=== PATIENT | female | born 1950 | race Caucasian/White ===

== ENCOUNTER 2017-08-18 08:00 | Outpatient (CLI) | payer BC | END 2017-08-18 08:01 | disposition home or self-care (01) | LOC: BICULT 08:00 | PROVIDERS: ATTEND Otolaryngology | DX: E04.1 Nontoxic single thyroid nodule (principal); E04.2 Nontoxic multinodular goiter | CPT/HCPCS: 76536 ==

== ENCOUNTER 2018-04-15 08:23 | Outpatient (CLI) | payer BC | END 2018-04-15 08:24 | disposition home or self-care (01) | LOC: BICMAMMO 08:23 | PROVIDERS: ATTEND Internal Medicine | DX: Z12.31 Encounter for screening mammogram for malignant neoplasm of breast (principal) | CPT/HCPCS: 77063; 77067 ==

== ENCOUNTER 2019-05-06 07:53 | Outpatient (CLI) | payer BC ==
--- NOTE | 2019-05-06 08:31 | MMO ---
Bilateral MAMMO Bilat Screen [facility]. CLINICAL HISTORY: Patient is 68 years old and is seen for screening. The patient has no family history of breast cancer. The patient has no personal history of cancer. VIEWS: The views performed were: bilateral craniocaudal with tomosynthesis and bilateral mediolateral oblique with tomosynthesis. FILMS COMPARED: The present examination has been compared to a prior imaging study performed at [facility] on 04/15/2018. This study has been interpreted with the assistance of computer-aided detection. MAMMOGRAM FINDINGS: There are scattered fibroglandular densities. There are stable benign appearing calcifications seen in both breasts. There are no suspicious masses, suspicious calcifications, or new areas of architectural distortion. IMPRESSION: THERE IS NO MAMMOGRAPHIC EVIDENCE OF MALIGNANCY. A ROUTINE FOLLOW-UP MAMMOGRAM IN 1 YEAR IS RECOMMENDED. THE RESULTS OF THIS EXAM WERE SENT TO THE PATIENT. ACR BI-RADS Category 2 - Benign finding MAMMOGRAPHY NOTE: 1. A negative mammogram report should not delay a biopsy if a dominant of clinically suspicious mass is present. 2. Approximately 10% to 15% of breast cancers are not detected by mammography. 3. Adenosis and dense breasts may obscure an underlying neoplasm. Reported by: DENEEN CURIEL MD Electonically Signed: [id number]
== END 2019-05-06 07:54 | disposition home or self-care (01) ==
LOC: BICMAMMO 07:53
PROVIDERS: ATTEND Internal Medicine
DX: Z12.31 Encounter for screening mammogram for malignant neoplasm of breast (principal)
CPT/HCPCS: 77063; 77067

== ENCOUNTER 2019-10-28 08:05 | Outpatient (CLI) | payer BC ==
--- NOTE | 2019-10-28 13:49 | CT ---
POSTCONTRAST SOFT TISSUE NECK CT: HISTORY: Acute tracheitis. Sore throat. Swollen larynx. COMPARISON: None. FINDINGS: Visualized brain parenchyma does not demonstrate any pathologic enhancement. Bilateral ocular lenses are appropriately located. Both globes are intact. Retrobulbar fat is prese rved. Symmetric attenuation of the optic nerves and ocular rectus muscles. Adequate aeration of the visualized sinuses and mastoid air cells. Limited evaluation of the oral cavity by dental amalgam artifact. Midline fatty raphae of the tongue is preserved. Epiglottis has a normal caliber. Preepiglottic fat is preserved. The supraglottic, glottic, and subglottic larynx do not demonstrate any obvious mucosal abnormality. There is asymmetr ic prominence of the right piriform sinus suggesting possible right vocal cord paralysis. Anterior a nd posterior commissures appear to be grossly unremarkable. No obvious inflammatory changes in the s oft tissues at the level of the thyroid cartilage or hyoid bone. Symmetric attenuation of the paraspinal muscles. Symmetric attenuation of the submandibular glands. Unremarkable thyroid gland. Fatty replacement of both parotid glands is demonstrated. Cervical spine vertebral body heights are maintained. No fracture. Loss of disk space height and os teophyte formation at C5-C6 and C6-C7. There are varying degrees of foraminal stenosis and foraminal narrowing. Technique limits evaluation. Upper mediastinum and lung apices do not demonstrate an acute abnormality. No evidence of lymphadenopathy due to size criteria. IMPRESSION: 1. Asymmetric prominence of right piriform sinus. Correlate for right vocal cord paralysis. 2. No obvious upper mediastinal masses which would account for possible right vocal cord paralysis. POS: CET
== END 2019-10-28 08:06 | disposition home or self-care (01) ==
LOC: SCSCT 08:05
PROVIDERS: ATTEND Otolaryngology Otolaryngic Allergy
DX: J04.10 Acute tracheitis without obstruction (principal); J38.4 Edema of larynx; K21.9 Gastro-esophageal reflux disease without esophagitis
CPT/HCPCS: 70491; 82565

== ENCOUNTER 2024-09-03 12:54 | Outpatient (CLI) | payer MEDICARE ==
[2024-09-03 14:14] LABS: #Basophils 0.04 10x3/uL (0.0-0.2); %Basophils 0.4 % (0.0-1.0); %Eosinophils 1.4 % (0.0-10.0); %Lymphocytes 21.8 % (21.0-51.0); %Monocytes 8.3 % (0.0-10.0); %Neutrophils 67.8 % (42.0-75.0); Hematocrit 40.5 % (36.0-47.0); Hemoglobin 13.3 g/dL (12.0-16.0); Mean Corpuscular HGB CONC 32.8 g/dL (32.0-36.0); Mean Corpuscular Hemoglobin 28.7 pg (27.0-31.0); Mean Corpuscular Volume 87.5 fL (78.0-98.0); Mean Platelet Volume 9.7 fL (7.4-10.4); Platelet Count 225 10x3/uL (130-400); RBC Distribution Width 12.6 % (11.5-14.5); Red Blood Cell (RBC) Count 4.63 mill/uL (4.20-5.40)
== END 2024-09-03 12:55 | disposition home or self-care (01) ==
LOC: LABBT 12:54
PROVIDERS: ATTEND Orthopaedic Surgery Hand Surgery
DX: Z01.818 Encounter for other preprocedural examination (principal); G56.02 Carpal tunnel syndrome, left upper limb
CPT/HCPCS: 85025

== ENCOUNTER 2024-09-07 07:48 | Day surgery (SDC) | payer MEDICARE ==
[2024-09-03 13:32] VITALS: BMI 32.0
[2024-09-07] MEDS ORDERED: Lidocaine 1% PF 5 ML VIAL ONE (09:41)
[2024-09-07] MEDS ORDERED: Dexamethasone 20 MG/5 ML VIAL ONE (09:41)
[2024-09-07] MEDS ORDERED: fentaNYL PF 100 MCG/2 ML SYRINGE ONE (09:41)
[2024-09-07] MEDS ORDERED: Ondansetron PF 4 MG/2 ML Vial ONE (09:41)
[2024-09-07] MEDS ORDERED: PROPOFOL 20 ML ONE (09:41)
[2024-09-07] MEDS ORDERED: Bacitracin Zinc Ointment 30 gm TUBE ONE (09:44)
[2024-09-07] MEDS ORDERED: Betamet Acet/Betamet Na Ph 30 MG/5 ML VIAL ONE (09:44)
[2024-09-07] MEDS ORDERED: Bupivacaine PF 0.5% 30 ML VIAL ONE (09:44)
[2024-09-07] MEDS ORDERED: CEFAZOLIN 2 GM VIAL ONE (10:12)
[2024-09-07] MEDS ORDERED: Sodium Chloride 0.9% 100 ML ONE (10:12)
[2024-09-07] MEDS ORDERED: Midazolam HCl 2 mg/2 ml Vial ONE (10:14)
[2024-09-07] MEDS ORDERED: PHENYLEPHRINE-NS 100 MCG/ML 10 ML SYRINGE ONE (10:47)
[2024-09-07] MEDS ORDERED: Glycopyrrolate 0.2 MG/ML 5 ML SYRINGE ONE (10:47)
[2024-09-07] MEDS ORDERED: Ketorolac Tromethamine 30 MG (1 mL) VIAL ONE (11:53)
== END 2024-09-07 13:48 | disposition home or self-care (01) ==
LOC: SDC 07:48
PROVIDERS: ATTEND Orthopaedic Surgery Hand Surgery
PROC: 01N50ZZ Release Median Nerve, Open Approach (ICD-10-PCS; principal; 2024-09-07)
DX: G56.03 Carpal tunnel syndrome, bilateral upper limbs (principal); E78.00 Pure hypercholesterolemia, unspecified; M19.011 Primary osteoarthritis, right shoulder; K21.9 Gastro-esophageal reflux disease without esophagitis; I10 Essential (primary) hypertension; M48.02 Spinal stenosis, cervical region; M77.11 Lateral epicondylitis, right elbow; Z90.710 Acquired absence of both cervix and uterus; Z98.49 Cataract extraction status, unspecified eye; Z79.899 Other long term (current) drug therapy; Z88.0 Allergy status to penicillin; Z98.890 Other specified postprocedural states
CPT/HCPCS: 64721; A6223; J0665; J1100; J1885; J2250; J2405; J2704; J0702

== ENCOUNTER 2025-06-20 13:49 | Outpatient (CLI) | payer MEDICARE | END 2025-06-20 13:50 | disposition home or self-care (01) | LOC: SCSMRI 13:49 | PROVIDERS: ATTEND Orthopaedic Surgery | DX: M19.011 Primary osteoarthritis, right shoulder (principal); M75.111 Incomplete rotator cuff tear or rupture of right shoulder, not specified as traumatic; M67.813 Other specified disorders of tendon, right shoulder; M25.411 Effusion, right shoulder; M65.911 Unspecified synovitis and tenosynovitis, right shoulder; M75.21 Bicipital tendinitis, right shoulder ==

== ENCOUNTER 2025-07-15 12:47 | Outpatient (CLI) | payer MEDICARE | END 2025-07-15 12:48 | disposition home or self-care (01) | LOC: SCSBT 12:47 | PROVIDERS: ATTEND Internal Medicine | DX: Z78.0 Asymptomatic menopausal state (principal) | CPT/HCPCS: 77080 ==